=== PATIENT | female | born 1985 ===

== ENCOUNTER 2021-09-28 19:43 | Emergency (ER) | payer MEDICAID ==
--- NOTE | 2021-09-28 20:02 | NUR ---
Patient was called to be triaged but was not present in the waiting room or outside of ER.
--- NOTE | 2021-09-28 20:20 | NUR ---
Patient was called to be triaged but was not present in the waiting room or outside of ER.
--- NOTE | 2021-09-28 20:35 | NUR ---
PATIENT WAS CALLED TO BE TRIAGED BUT WAS NOT PRESENT IN THE [facility] ROOM OR OUTSIDE OF ER. PATIENT WAS NOT SEEN BY [facility] OR TRIAGED.
== END 2021-09-28 20:45 | disposition left against medical advice (07) ==
LOC: ER 19:53
DX: Z53.21 Procedure and treatment not carried out due to patient leaving prior to being seen by health care provider (principal)

== ENCOUNTER 2024-07-08 22:00 | Emergency (ER) | payer MEDICAID, OTHER ==
[~2024-07-08] VITALS: Ht 162.6 cm; Wt 6.8 kg
[2024-07-08] MEDS ORDERED: ONDANSETRON 4 MG/2 ML VIAL ONE (22:49)
[2024-07-08] MEDS ORDERED: HYDROMORPHONE 1 MG/1 ML DISP.SYRIN ONE (22:49)
[2024-07-08 22:51] LABS: BASOPHILS # (AUTO) 0.1 K/UL (0.0-0.2); BASOPHILS % (AUTO) 0.8 % (0.0-2.0); EOSINOPHILS % (AUTO) 0.4 % (0.0-7.0); HEMATOCRIT 37.5 % (31.2-41.9); HEMOGLOBIN 12.4 g/dL (10.9-14.3); LYMPHOCYTES # (AUTO) 1.7 K/uL (0.8-4.8); LYMPHOCYTES % (AUTO) 16.5 % (20.5-51.5); MEAN CORPUSCULAR HEMOGLOBIN 29.5 uug (24.7-32.8); MEAN CORPUSCULAR HGB CONC 33 g/dL (32.3-35.6); MEAN CORPUSCULAR VOLUME 89.2 fL (75.5-95.3); MONOCYTES # (AUTO) 0.6 K/uL (0.1-1.30); MONOCYTES % (AUTO) 5.7 % (0.0-11.0); NEUTROPHILS # (AUTO) 7.7 K/uL (1.8-8.9); NEUTROPHILS % (AUTO) 76.6 % (38.5-71.5); PLATELET COUNT (AUTO) 231 K/uL (179-408); RED CELL DISTRIBUTION WIDTH 14.2 % (12.3-17.7); WHITE BLOOD COUNT (AUTO) 10.1 K/uL (3.8-11.8)
[2024-07-08] MEDS: HYDROMORPHONE 1 MG/1 ML DISP.SYRIN IV ONE (22:55)
[2024-07-08] MEDS: ONDANSETRON 4 MG/2 ML VIAL IV ONE (22:55)
[2024-07-08 23:04] LABS: BILIRUBIN,DIRECT 0.1 mg/dL (0.0-0.2); BILIRUBIN,TOTAL 0.4 mg/dL (0.2-1.0); CALCIUM 9.1 mg/dL (8.5-10.1); CREATININE 0.9 mg/dL (0.6-1.3); POTASSIUM 3.6 mmol/L (3.5-5.1); TOTAL PROTEIN, SERUM 7.7 g/dL (6.4-8.2)
[2024-07-08] MEDS: IV NORMAL SALINE 1000 ML BAG IV ONE (23:10)
[2024-07-09] MEDS ORDERED: ONDA4TAB11 PO (00:26)
[2024-07-09] MEDS ORDERED: HYDROMORPHONE 1 MG/1 ML DISP.SYRIN ONE (00:54)
[2024-07-09] MEDS: HYDROMORPHONE 1 MG/1 ML DISP.SYRIN IV ONE (01:06)
[2024-07-09 04:24] VITALS: BP 119/88; TEMP 97; O2SAT 100
== END 2024-07-09 04:25 | disposition home or self-care (01) ==
LOC: ER 22:02
DX: G43.909 Migraine, unspecified, not intractable, without status migrainosus (principal); R55 Syncope and collapse; Z79.899 Other long term (current) drug therapy
CPT/HCPCS: 36415; 85025; A4606; A4663; J1171; J2405; J7040